=== PATIENT | female | born 1940 | race Caucasian/White ===

== ENCOUNTER → 2016-11-29 | Outpatient (REF) ==
[~2016-11-29] MED LIST: ASPIRIN E.C. 8181 MG PO; CALCIUM 600MG+D1 TAB PO; FLONASEALLERGY NS; HUMALOG100 U/ML SQ; LANTUS100 U/ML SQ; LEVOXYL0.025 MG PO; LIPITOR 10MG10 MG PO; NEURONTIN300 MG/CAP PO; NOVOLOG 100U100 U/M1 SQ; PLAVIX 75MG TAB75 MG PO; PRINIVIL5 MG PO; ZANTAC 150MG T150 MG PO; ZEBETA 5MG5 MG PO
== END ==
LOC: ZLAB.WCH 16:55
DX: Z02.89 Encounter for other administrative examinations (principal)

== ENCOUNTER → 2017-03-26 | Outpatient (REF) | LOC: ZLAB.WCH 20:25 | DX: Z01.89 Encounter for other specified special examinations (principal) ==

== ENCOUNTER → 2017-07-31 | Outpatient (REF) ==
[2017-07-31 19:31] LABS: THYROID STIMULATING HORMONE 3.14 uIU/mL (0.465-4.680)
== END ==
LOC: ZLAB.WCH 18:05
PROVIDERS: Family Medicine
DX: Z01.89 Encounter for other specified special examinations (principal)

== ENCOUNTER → 2017-08-13 | Outpatient (CLI) | payer MEDICARE, MEDICAID ==
[~2017-08-13] VITALS: Ht 162.6 cm; Wt 94.2 kg
[2017-08-13] VITALS (11 sets, daily range): BP systolic 108–145; BP diastolic 39–72; PULSE 61–77
[~2017-08-13] MED LIST changes: +MIRAPEX0.5 MG PO; +PROTONIX20 MG PO; +PROVENTIL0.09 MG/A1 IH; +SYNTHROID0.05 MG/TA PO
== END ==
LOC: COL.RAD 12:30
DX: C80.0 Disseminated malignant neoplasm, unspecified (principal); R18.8 Other ascites
CPT/HCPCS: 25757; 27584

== ENCOUNTER 2017-08-30 09:23 | Day surgery (SDC) | payer MEDICARE, MEDICAID ==
[~2017-08-30] VITALS: Ht 167.6 cm; Wt 94.5 kg
[2017-08-30 10:52] VITALS: BP 105/58; PULSE 71; TEMP 97.6
[2017-08-30] MEDS ORDERED: ZESTRIL 5MG5 MG PO (11:08)
[2017-08-30] MEDS ORDERED: PROTONIX 40MG T40 MG PO (11:10)
[2017-08-30] MEDS ORDERED: MIRAPEX0.25 MG PO (11:12)
[2017-08-30] MEDS ORDERED: FERROUS SU325 MG/TAB PO (11:13)
[2017-08-30] MEDS ORDERED: TYLENOL 500MG500 MG PO (11:15)
[2017-08-30] MEDS ORDERED: MIRALAX PA17 GM/Dose PO (11:23)
[2017-08-30 11:52] LABS: CALCIUM 9.1 mg/dL (8.4-10.2); CREATININE, serum 1.35 mg/dL (0.52-1.25)
[2017-08-30 13:09] VITALS: BP 79/45; PULSE 84
[2017-08-30 13:25] VITALS: BP 80/36; PULSE 84
[2017-08-30] MEDS ORDERED: NORCO 325 MG-51 TAB PO (13:35)
[2017-08-30 13:40] VITALS: BP 95/60; PULSE 84
[2017-08-30 14:00] VITALS: BP 92/66; PULSE 82
[2017-08-30 14:30] VITALS: BP 97/51; PULSE 100
== END 2017-08-30 15:20 | disposition home or self-care (01) ==
LOC: SDCO 09:23
PROVIDERS: Nurse Anesthetist, Certified Registered
DX: C80.0 Disseminated malignant neoplasm, unspecified (principal); C78.6 Secondary malignant neoplasm of retroperitoneum and peritoneum; C80.1 Malignant (primary) neoplasm, unspecified; I12.9 Hypertensive chronic kidney disease with stage 1 through stage 4 chronic kidney disease, or unspecified chronic kidney disease; E11.22 Type 2 diabetes mellitus with diabetic chronic kidney disease; N18.3 Chronic kidney disease, stage 3 (moderate); E11.40 Type 2 diabetes mellitus with diabetic neuropathy, unspecified; Z79.4 Long term (current) use of insulin; I25.2 Old myocardial infarction; I25.10 Atherosclerotic heart disease of native coronary artery without angina pectoris; E03.9 Hypothyroidism, unspecified; K21.9 Gastro-esophageal reflux disease without esophagitis; Z95.1 Presence of aortocoronary bypass graft; J44.9 Chronic obstructive pulmonary disease, unspecified; F17.210 Nicotine dependence, cigarettes, uncomplicated; J30.9 Allergic rhinitis, unspecified; Z79.82 Long term (current) use of aspirin; E66.9 Obesity, unspecified
CPT/HCPCS: C1788; J1100; J1644; J2250; J2405; J2704; J3010

== ENCOUNTER → 2017-09-28 | Outpatient (REF) ==
[~2017-09-28] MED LIST changes: +FERROUS SU325 MG/TAB PO; +MIRALAX PA17 GM/Dose PO; +MIRAPEX0.25 MG PO; +NORCO 325 MG-51 TAB PO; +PROTONIX 40MG T40 MG PO; +TYLENOL 500MG500 MG PO; +ZESTRIL 5MG5 MG PO
== END ==
LOC: ZLAB.WCH 18:12
DX: Z01.89 Encounter for other specified special examinations (principal)